=== PATIENT | female | born 1980 | race Caucasian/White ===

== ENCOUNTER 2017-03-30 06:01 | Inpatient (IN) | payer OTHER ==
[~2017-03-30 06:01] MED LIST: ARIMIDEX1 M1 PO; EFFEXOR XR37.5 M1 PO; INJECTION IM
--- NOTE | 2017-03-30 21:51 | NUR ---
VIRTUAL CARE NOTE: ASSESSMENT DEFERRED. PT WITH RN SEVERAL TIMES. CALLED ANESTHESIA REGARDING PT EPIDURAL/PRURITIS. MED ORDERS CHANGED. FLOOR RN WITH PT WHEN I CALLED HER, SHE UPDATED THE PATIENT. WILL CONTINUE TO ASSESS EPIDURAL MANAGEMENT AND CONTINUE WITH CHART REVIEW. ASKED RN TO CALL ME FROM ROOM IF PT NEEDED MORE EXPLINATION OR MORE TIMELY DETAILS. RN V/U.
[2017-03-31 05:51] LABS: BASO % 0.1 % (0-2); HCT-HEMATOCRIT 36.4 % (34.0-49.0); HGB-HEMOGLOBIN 12.2 gm/dl (12.0-15.5); IMMATURE GRANULOCYTES ABSOLUTE 0.05 tho/cmm (0-0.03); IMMATURE GRANULOCYTES PERCENT 0.3 % (0-0.3); LYMPH % 11.4 % (20-45); MCHC MEAN CORPUSCULAR HGB CONC 33.5 % (32.0-36.0); MCV (MEAN CELL VOLUME) 89.7 fl (82.0-96.0); MEAN PLATELET VOLUME 9.8 cmc (9.4-12.4); MONO % 8.9 % (0-12); MONOCYTE ABSOLUTE COUNT 1.5 tho/cmm (0.0-1.2); NEUTROPHIL ABSOLUTE COUNT 13.7 tho/cmm (1.6-8.0); NEUTROPHIL-AUTOMATED 13.7 tho/cmm (1.6-8.0); NEUTROPHILS % 79.3 % (40-80); PLATELET COUNT 298 tho/cmm (150-450); RED BLOOD COUNT 4.06 mil/cmm (4.00-5.20); RED CELL DISTRIBUTION WIDTH 12.4 % (12.4-16.4); WHITE BLOOD COUNT 17.3 tho/cmm (4.0-10.0)
--- NOTE | 2017-04-01 14:13 | NUR ---
VIRTUAL CARE NOTE: PT RESTING ON BED, STATES DOING GOOD TODAY, EPIDURAL STILL IN PT TAKES [place]CO PO PAIN CONTROLLED. DISCHARGE PLAN DISCUSSED, START JANN TEACHING AND PLAN FOR HOME. PT HAS NOT BEEN SHOWER YET DUE TO EPIDRUAL. PLAN OF CARE REVIEWED, PT DENIES CONCERNS OR QUESTIONS.
--- NOTE | 2017-04-01 21:20 | NUR ---
VIRTUAL CARE NOTE: PT. IN BED, STATES HER PAIN IS ABOUT A 3, AND SHE HAS BEEN ABLE TO TOLERATE HER EGG SALAD FROM HER MEALS. WHEN ASKED ABOUT PRACTICING DUMPING HER JANN'S SHE STATES SHE WOULD LIKE TO DO THIS IN THE AM BEFORE THE EPIDURAL IS REMOVED AND HAS BEEN WATCHING THE STAFF WITH CARES. THIS RN WILL PASS ON THIS INFORMATION TO THE AM STAFF. INSTRUCTED TO CALL FOR FUTURE NEEDS. STATES VERBAL UNDERSTANDING.
--- NOTE | 2017-04-02 11:00 | NUR ---
VIRTUAL CARE NOTE: PT RESTING ON BED, STATES FEEL WEAK TODAY, TIRED WANTS TO REST. DISCHARGE PLAN DISCUSSED WITH PT, PT WANTS TO DO SHOWER WHEN HER MOM GETS HERE AND WILL LEARN JANN CARE AT THAT TIME. PT DENIES ANY NEEDS AT THIS TIME WANTS TO REST FOR NOW.
[2017-04-02] MEDS ORDERED: ROXICODONE5 M2 PO (13:04)
[2017-04-02] MEDS ORDERED: MOTRIN IB200 M1 PO (13:06)
[2017-04-02] MEDS ORDERED: TYLENOL EXTRA500 M1 PO (13:07)
[2017-04-02] MEDS ORDERED: MILK OF MAGNESIA PO (13:09)
[2017-04-02] MEDS ORDERED: CALAMINE LOTIO177 M1 TOP (13:10)
--- NOTE | 2017-04-02 15:48 | NUR ---
VIRTUAL CARE NOTE: PT RESTING ON BED, MOTHER AT BEDSIDE READY FOR DISCHARGE INSTRUCTIONS. INFORMATION GIVEN TO PT, ALL QUESTIONS ANSWERED TO MOTHER. PT AND FAMILY DENIES FURTHER QUESTIONS AND CONCERNS. THEY FEEL COMFORTABLE WITH JANN CARE AT HOME. INFORMED FLOOR NURSE DISCHARGE TEACHING COMPLETE.
== END 2017-04-02 14:40 | DRG 581 ==
LOC: SHSA 06:01 → ORW 10:59 → PACU 15:11 → 5WD 16:25
PROVIDERS: ADMIT Specialist
PROC: 0HTU0ZZ Resection of Left Breast, Open Approach (ICD-10-PCS; principal; 2017-03-30)
PROC: 07B90ZX Excision of Left Internal Mammary Lymphatic, Open Approach, Diagnostic (ICD-10-PCS; 2017-03-30)
PROC: 0KXL0Z6 Transfer Left Abdomen Muscle, Transverse Rectus Abdominis Myocutaneous Flap, Open Approach (ICD-10-PCS; 2017-03-30)
DX: C50.912 Malignant neoplasm of unspecified site of left female breast (principal); Z17.0 Estrogen receptor positive status [ER+]
CPT/HCPCS: A9520; J0690; J1170; J1200; J2250; J2310; J2405; J2765; J2795; J3010; J7030; J7050; Q9968